=== PATIENT | female | born 1980 | race Caucasian/White ===

== ENCOUNTER 2022-10-31 17:33 | Emergency (ER) | payer OTHER ==
[2022-10-31 17:40] VITALS: BP 134/81; PULSE 74; RESP 18; TEMP 97; BMI 24.0
[2022-10-31] MEDS ORDERED: DIPHTH,PERTUSS(ACELL),TET 0.5 ML DISP.SYRIN IM ONE ×2 (19:02→19:08)
[2022-10-31] MEDS ORDERED: AMOX TR/POT CLAV 875MG/125MG TABLETS (FP) PO ONE (19:39)
[2022-10-31] MEDS ORDERED: AMOX TR/POT CLAV 875MG/125MG TABLETS (FP) ONE (19:42)
== END 2022-10-31 21:45 | disposition home or self-care (01) ==
LOC: JERFT 17:33
PROC: 3E0234Z Introduction of Serum, Toxoid and Vaccine into Muscle, Percutaneous Approach (ICD-10-PCS; principal; 2022-10-31)
DX: S92.415A Nondisplaced fracture of proximal phalanx of left great toe, initial encounter for closed fracture (principal); W20.8XXA Other cause of strike by thrown, projected or falling object, initial encounter
CPT/HCPCS: 73630-TC-LT; 90471; 90715; 99284-25

== ENCOUNTER 2022-12-16 15:34 | Emergency (ER) | payer OTHER ==
[2022-12-16 15:42] VITALS: BP 120/77; PULSE 81; RESP 18; TEMP 98; BMI 21.6
[2022-12-16] MEDS ORDERED: ACETAMINOPHEN 500 MG TABLET (FP) PO ONE (16:55)
[2022-12-16] MEDS ORDERED: ACETAMINOPHEN 500 MG TABLET (FP) ONE (16:59)
== END 2022-12-16 18:06 | disposition home or self-care (01) ==
LOC: JER 15:34
DX: M79.672 Pain in left foot (principal)
CPT/HCPCS: 73630-TC-LT; 99283-25